=== PATIENT | female | born 1985 | race Caucasian/White ===

== ENCOUNTER 2017-01-02 14:13 | Emergency (ER) | payer OTHER ==
[2017-01-02 14:24] VITALS: BP 137/85
--- NOTE | 2017-01-02 14:56 | UC ---
Knee Pain HPI - HPI Summary HPI Summary: Pt states she has no cartilage in her R knee. Usually limits standing but has a new job and has been on her feet more than usual. Pain in the back of knee as well. Pain in R hip also. Pain in L ear, tender to the touch and intermediate sharp pain. She reports that she was seen by ortho many yrs ago in [place] and has had work restrictions for no standing for more than 4 hrs. She was also seen by ortho by [facility] by someone a few yrs ago adn was sent to PT. PT "wouldn't touch it." She is unsure of the exact dx. Pain radiates up side of her right thigh into her hip. Upon further questioning about FHx blood clots she reports that she is Factor V Leiden positive and has had at least 1 blood clot many yrs ago and was on lovenox. She is not on any anti-coagulation. States she is allergic to ASA. Hasnt seen her PCP in " a while". She doesn't think the pain behind her knee is a DVT. She is not on OCPs. Has been taking advil for knee pain. declines crutches. she does report buckling and giving out on her. She is a vague historian. - History of Current Complaint Chief Complaint: UCLowerExtremity Stated Complaint: RIGHT KNEE PAIN/SWELLING & LEFT EAR PAIN Time Seen by Provider: 01/02/17 14:43 Hx Last Menstrual Period: 11/16/2016 - Allergies/Home Medications Allergies/Adverse Reactions: Allergies Allergy/AdvReac Type Severity Reaction Status Date / Time Aspirin Allergy Severe seizure Verified 01/02/17 14:24 strawberries Allergy Severe Hives Uncoded 01/02/17 14:24 PMH/Surg Hx/FS Hx/Imm Hx Previously Healthy: Yes - + Factor V Leiden, + DVT hx Respiratory History Of: Reports: Asthma - Surgical History Surgical History: Yes Surgery Procedure, Year, and Place: tooth extraction, d&c, right carpal tunnel - Family History Known Family History: Positive: Hypertension - Social History Alcohol Use: None Substance Use Type: None Smoking Status (MU): Heavy Every Day Tobacco Smoker Type: Cigarettes, eCigarettes Amount Used/How Often: 1/2 pack daily Length of Time of Smoking/Using Tobacco: 2005 - Immunization History Most Recent Influenza Vaccination: current Review of Systems Constitutional: Negative Skin: Negative Eyes: Negative ENT: Ear Ache Respiratory: Negative Cardiovascular: Negative Gastrointestinal: Negative Genitourinary: Negative Motor: Negative Neurovascular: Negative Musculoskeletal: Arthralgia Neurological: Negative Psychological: Negative All Other Systems Reviewed And Are Negative: Yes Physical Exam Triage Information Reviewed: Yes Appearance: Well-Appearing - insight is limited, No Pain Distress Vital Signs: Initial Vital Signs Temp 97.9 F 01/02/17 14:17 Pulse 100 01/02/17 14:17 Resp 18 01/02/17 14:17 BP 137/85 01/02/17 14:17 Pulse Ox 99 01/02/17 14:17 Eye Exam: Normal ENT: Positive: Normal ENT inspection, TMs normal - Left external ear is tender with manipulation. Canal with mild exudate.. Negative: TM bulging, TM dull, TM red Neck exam: Normal Neck: Positive: Supple, Nontender, No Lymphadenopathy Respiratory: Positive: Lungs clear, Normal breath sounds, No respiratory distress, No accessory muscle use Cardiovascular Exam: Normal Cardiovascular: Positive: RRR, No Murmur, Pulses Normal, Brisk Capillary Refill Abdomen Description: Positive: Nontender, Soft Musculoskeletal: Positive: Other: - right knee with FROM, no swelling, no erythema, cool to touch. There is tenderness in posterior right knee and thigh. Also tenderness in right lateral thigh to lateral hip. Neurological Exam: Normal Psychological Exam: Normal, Other Skin Exam: Normal Knee Pain Course/Dx - Course Course Of Treatment: Se d/c sheet comments which are given to and reviewed with her today. She declines xrays and crutches. - Differential Dx/Diagnosis Differential Diagnosis/HQI/PQRI: Bursitis, DVT, Sprain, Strain, Tendonitis, Other - PFS, meniscus tear Provider Diagnoses: Right knee pain, Right posterior thigh pain, IT Band Syndrome, Otitis externa - Physician Notifications Discussed Patient Care With: Gayla Stein - I have explained history of presentation and Factor V Leiden and DVT hx to her and my recommendation for an US which is NA here today. She accepts pt. Time Discussed With Above Provider: 15:15 Discharge - Discharge Plan Condition: Fair Disposition: TRANS HIGHER LVL OF CARE FAC
== END 2017-01-02 15:25 | disposition short-term general hospital (02) ==
LOC: UCCORT 14:13
DX: M25.561 Pain in right knee (principal); M79.651 Pain in right thigh; M76.31 Iliotibial band syndrome, right leg; H60.92 Unspecified otitis externa, left ear; Z88.6 Allergy status to analgesic agent; F17.210 Nicotine dependence, cigarettes, uncomplicated
CPT/HCPCS: 99212; G0463

== ENCOUNTER 2017-03-27 08:43 | Emergency (ER) | payer SELFPAY ==
[2017-03-27 09:04] VITALS: BP 119/81
--- NOTE | 2017-03-27 09:26 | UC ---
Hand/Wrist HPI - History Of Current Complaint Chief Complaint: UCUpperExtremity Stated Complaint: RIGHT HAND INJURY Time Seen by Provider: 03/27/17 09:19 Hx Obtained From: Patient Hx Last Menstrual Period: 03/15/17 Onset/Duration: Sudden Onset - punched a wall, Lasting Days - 2, Still Present Severity Initially: Moderate Severity Currently: Severe Character Of Pain: Sharp, Dull, Aching Aggravating Factor(s): Movement, Lifting, Flexion Alleviating: Nothing Associated Signs And Symptoms: Positive: Swelling, Bruising, Numbness/Tingling Related History: Dominant Hand Right - Risk Factors Compartment Syndrome Risk Factors: Pain, Paresthesias - Allergies/Home Medications Allergies/Adverse Reactions: Allergies Allergy/AdvReac Type Severity Reaction Status Date / Time Aspirin Allergy Severe seizure Verified 03/27/17 08:53 strawberries Allergy Severe Hives Uncoded 03/27/17 08:53 PMH/Surg Hx/FS Hx/Imm Hx Neurological History: Migraine Psychological History: Anxiety, Depression - Surgical History Surgical History: Yes Surgery Procedure, Year, and Place: tooth extraction, d&c, right carpal tunnel - Family History Known Family History: Positive: Hypertension - Social History Occupation: Employed Full-time Lives: With Family Alcohol Use: None Substance Use Type: None Smoking Status (MU): Heavy Every Day Tobacco Smoker Type: Cigarettes, eCigarettes Amount Used/How Often: 1/2 pack daily Length of Time of Smoking/Using Tobacco: 2005 Cessation Counseling: Patient Advised to Stop - Immunization History Most Recent Influenza Vaccination: current Review of Systems Musculoskeletal: Arthralgia Neurological: Headache - migraines All Other Systems Reviewed And Are Negative: Yes Physical Exam Triage Information Reviewed: Yes Appearance: Well-Appearing, Well-Nourished, Pain Distress - mild Vital Signs: Initial Vital Signs Temp 98.3 F 03/27/17 08:54 Pulse 92 03/27/17 08:54 Resp 18 03/27/17 08:54 BP 119/81 03/27/17 08:54 Pulse Ox 98 03/27/17 08:54 Vital Signs Reviewed: Yes Eyes: Positive: Conjunctiva Clear Neck exam: Normal Respiratory Exam: Normal Cardiovascular Exam: Normal Musculoskeletal: Positive: ROM Limited @ - right wrist and almond cutting machine tender., Other: - tenderness on the distal radius Neurological: Positive: Other: - decreased pinprick sensation on the 3rd 4th and 5th fingers dorsal and ventral up to the mid hand. Psychological Exam: Normal Skin Exam: Normal Hand/Wrist Course/Dx - Differential Dx/Diagnosis Differential Diagnosis/HQI/PQRI: Contusion, Dislocation, Fracture, Sprain Provider Diagnoses: Contusion hand. Sprain wrist. Neuralgia/ Neuritis right hand Discharge - Discharge Plan Condition: Stable Disposition: HOME Patient Education Materials: Contusion in Adults (ED), Wrist Sprain (ED) Additional Instructions: Smoking Cessation Tricks. 1. Cut down by 1 cigarette per day every 2-3 days. Write the number of smokes for that day on the calendar. 2. Identify triggers to smoking: after meals, on the phone, in the car, with coffee, on breaks at work, etc. 3. Formulate a plan with a behavior to replace the smoking. Fireballs in the car , doodle pad on the phone, flavored creamer for the coffee, go for a walk after a meal or on break at work. 4. For stress smokes do deep breathing relaxation. Breath deep in through the nose hold the breath in for a few seconds then breath out slowly through the mouth.
--- NOTE | 2017-03-27 10:29 | RAD ---
Indication: Right hand injury, fourth metacarpal pain. 4 views of the right hand demonstrates no fracture. No other bone or joint abnormality is identified. IMPRESSION: No fracture of the right hand is noted.
--- NOTE | 2017-03-27 10:29 | RAD ---
Indication: Right wrist pain 3 views of the wrist demonstrates no fracture. No other bone or joint abnormality is identified. IMPRESSION: NO FRACTURE OF THE WRIST IS NOTED.
== END 2017-03-27 10:19 | disposition home or self-care (01) ==
LOC: UCCORT 08:43
DX: S60.221A Contusion of right hand, initial encounter (principal); S63.501A Unspecified sprain of right wrist, initial encounter; W22.09XA Striking against other stationary object, initial encounter; Y93.9 Activity, unspecified; Y92.9 Unspecified place or not applicable; M79.641 Pain in right hand; G43.909 Migraine, unspecified, not intractable, without status migrainosus; F41.9 Anxiety disorder, unspecified; F32.9 Major depressive disorder, single episode, unspecified; Z88.6 Allergy status to analgesic agent; F17.210 Nicotine dependence, cigarettes, uncomplicated
CPT/HCPCS: 99212; G0463

== ENCOUNTER 2018-10-06 15:47 | Emergency (ER) | payer SELFPAY | END 2018-10-06 17:11 | disposition left against medical advice (07) | LOC: UCCORT 15:47 | DX: Z53.21 Procedure and treatment not carried out due to patient leaving prior to being seen by health care provider (principal) ==